=== PATIENT | male | born 1960 | race Caucasian/White ===

== ENCOUNTER 2017-11-26 18:57 | Emergency (ER) | payer BC ==
[2017-11-26] MEDS ORDERED: Lidocaine 2% 5 ML SDV ONE (19:00)
[2017-11-26] MEDS: Diphtheria/Tetanus Toxoids,Adult (Td) 0.5 ML SDV IM ONE (19:30)
[2017-11-26] MEDS ORDERED: Sulfamethoxazole/Trimethoprim 800-160 MG Tab ONE (20:00)
--- NOTE | 2017-11-26 20:28 | EDM.PDOC ---
ED HPI GENERAL MEDICAL PROBLEM - General Stated Complaint: NAIL IN LEFT ARM Time Seen by Provider: 11/26/17 19:00 Source of Information: Reports: Patient History Limitations: Reports: No Limitations - History of Present Illness INITIAL COMMENTS - FREE TEXT/NARRATIVE: According to patient he was using nail gun and working on building his cabin. The nail gun doubled up and he hit his left lower forearm and shot a nail in his left forearm. Pt claims it did hurt him initially when it happened, but presently no pain. he is not sure of his tetanus status. No swelling of the forearm. No tingling or numbness in the hand. 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 No pallor or purplish discoloration of the hand. Onset: Today Onset Date: 11/26/17 Location: Reports: Upper Extremity, Left Quality: Reports: Ache Severity: Mild Improves with: Reports: None Worsens with: Reports: None Associated Symptoms: Denies: Confusion, Chest Pain, Cough, Diaphoresis, Fever/ Chills, Headaches, Nausea/Vomiting, Rash, Seizure, Shortness of Breath, Syncope , Weakness - Related Data Allergies Allergy/AdvReac Type Severity Reaction Status Date / Time Penicillins Allergy Rash Verified 11/26/17 20:14 ED ROS GENERAL - Review of Systems Review Of Systems: See Below Constitutional: Denies: Fever, Chills HEENT: Denies: Rhinitis, Throat Pain, Throat Swelling Respiratory: Denies: Shortness of Breath, Wheezing, Cough, Sputum Cardiovascular: Denies: Chest Pain, Lightheadedness Endocrine: Denies: Fatigue GI/Abdominal: Denies: Abdominal Pain, Nausea, Vomiting Musculoskeletal: Denies: Joint Pain, Joint Swelling Skin: Denies: Bruising, Pruritis, Rash ED EXAM, GENERAL - Physical Exam Exam: See Below Exam Limited By: No Limitations General Appearance: Alert, WD/WN, No Apparent Distress Eye Exam: Bilateral Eye: EOMI, PERRL Ears: Normal External Exam, Normal Canal, Hearing Grossly Normal, Normal TMs Ear Exam: Bilateral Ear: Auricle Normal, Canal Normal, TM normal Nose: Normal Inspection, Normal Mucosa, No Blood Throat/Mouth: Normal Inspection, Normal Lips, Normal Teeth, Normal Gums, Normal Oropharynx, Normal Voice, No Airway Compromise Head: Atraumatic, Normocephalic Neck: Normal Inspection, Supple, Non-Tender, Full Range of Motion Respiratory/Chest: No Respiratory Distress, Lungs Clear, Normal Breath Sounds, No Accessory Muscle Use, Chest Non-Tender Cardiovascular: Normal Peripheral Pulses, Regular Rate, Rhythm, No Edema, No Gallop, No JVD, No Murmur, No Rub Extremities: Other (left forearm: there is a nail stcuk and embeeded over the ventral aspect of the lower forearm just lateral to the radial artery in the lower forearm.There is good radial artery pulstion in the wrist distal to injruy. Also normal neurovascular exam of the left hand. 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 Xray shows no bony trauma and the nail appear 3 cm embedded under the skin. Neuro-vascular exam of the left hand was normal. Pt did receive tetanus today. The wound was cleaned with betadine. the area around the nail was infiltrated with 2% lidocaine and good analgesia was obtained. The nail was removed by anticlockwise rotation,Pt tolerated the procedure well. No active bleeding noted. Neuor-vascular exam post procedure was normal. Pressure dressing done. I have applied wrist splint around the wrist to prevent excessive movement of the wrist. Also advised to monitor for compartment syndrome, as this is a deep penetrating injury. Symptoms to watch for was discussed and education material given to patient. Advise to keep his arm elevated. If he does get signs of compartment syndrome advised to return [facility] to emergency room. Other patino followup with his primary care provider early next week. As this is deep penetrating injury, i did start him on Bactrim DS 1 PO BID for 10 days. - Orders/Labs/Meds Orders: Active Orders 24 hr Category Date Time Status Vaccines to be Administered [RC] PER UNIT ROUTINE Care 11/26/17 20:13 Active Wrist 2V Lt [CR] Stat Exams 11/26/17 19:19 Taken Meds: Medications Discontinued Medications Generic Name Dose Route Start Last Admin Trade Name Freq PRN Reason Stop Dose Admin Tetanus/Diphtheria Toxoids 0.5 ml 11/26/17 20:13 11/26/17 19:30 Tenivac IM 11/26/17 20:14 0.5 ml .ONCE ONE Administration Departure - Departure Time of Disposition: 19:30 Disposition: Home, Self-Care 01 Condition: Fair Clinical Impression: Foreign body forearm - Discharge Information Instructions: Acute Compartment Syndrome Referrals: PCP,None [Primary Care Provider] - Additional Instructions: Take Bacrim tab twice a day for 10 days - Problem List & Annotations (1) Foreign body forearm SNOMED Code(s): 773140296 Code(s): S50.859A - SUPERFICIAL FOREIGN BODY OF UNSPECIFIED FOREARM, INIT ENCNTR Status: Acute Current Visit: Yes - Problem List Review Problem List Initiated/Reviewed/Updated: Yes - My Orders Last 24 Hours: My Active Orders 11/26/17 19:19 Wrist 2V Lt [CR] Stat 11/26/17 20:13 Vaccines to be Administered [RC] PER UNIT ROUTINE - Assessment/Plan Last 24 Hours: My Active Orders 11/26/17 19:19 Wrist 2V Lt [CR] Stat 11/26/17 20:13 Vaccines to be Administered [RC] PER UNIT ROUTINE Assessment:: Foreign body left forearm Plan: Xray of the left fore arm was done to make sure there is no bony injury asso with the trauma. Xray shows no bony trauma and the nail appear 3 cm embedded under the skin. Neuro-vascular exam of the left hand was normal. Pt did receive tetanus today. The wound was cleaned with betadine. the area around the nail was infiltrated with 2% lidocaine and good analgesia was obtained. The nail was removed by anticlockwise rotation,Pt tolerated the procedure well. No active bleeding noted. Neuor-vascular exam post procedure was normal. Pressure dressing done. I have applied wrist splint around the wrist to prevent excessive movement of the wrist. Also advised to monitor for compartment syndrome, as this is a deep penetrating injury. Symptoms to watch for was discussed and education material given to patient. Advise to keep his arm elevated. If he does get signs of compartment syndrome advised to return [facility] to emergency room. Other patino followup with his primary care provider early next week. As this is deep penetrating injury, i did start him on Bactrim DS 1 PO BID for 10 days.
--- NOTE | 2017-11-28 07:45 | CR ---
DATE OF SERVICE: 11/26/2017 CLINICAL DATA: Foreign body in the forearm LEFT WRIST: There is a metallic density foreign body located in the soft tissues ventral to the distal radius. No bony involvement. No other significant findings. [id number] [facility]
== END 2017-11-26 20:41 | disposition home or self-care (01) ==
LOC: LB.ED 18:57
DX: S50.852A Superficial foreign body of left forearm, initial encounter (principal); W29.4XXA Contact with nail gun, initial encounter; Z23 Encounter for immunization; Z88.0 Allergy status to penicillin
CPT/HCPCS: 73100-LT; 90471; 90714; 99283-25; A9270-GY